=== PATIENT | female | born 2000 | race Caucasian/White ===

== ENCOUNTER → 2022-07-05 | Outpatient (REF) | LOC: M EMP 08:25 | PROVIDERS: ATTEND Family Medicine | DX: Z11.52 Encounter for screening for COVID-19 (principal) ==

== ENCOUNTER → 2022-07-12 | Outpatient (REF) | LOC: M EMP 13:47 | PROVIDERS: ATTEND Family Medicine | DX: Z11.52 Encounter for screening for COVID-19 (principal) ==

== ENCOUNTER → 2022-11-17 | Outpatient (CLI) | payer OTHER ==
[~2022-11-17] MED LIST: CEFD300C41 PO; JUNETAB PO
[2022-11-17 13:27] LABS: BASO # 0.1 10^3/uL (0.0-0.2); BASO % 0.8 % (0.0-1.0); EOS # 0.1 10^3/uL (0.0-0.5); EOS % 1.6 % (0.0-3.0); HEMATOCRIT 36.3 % (36.0-47.0); HEMOGLOBIN 11.6 g/dl (12.0-15.5); LYMPH # 2.1 10^3/uL (1.5-5.0); LYMPH % 32.4 % (24.0-44.0); MEAN CORPUSCULAR HEMOGLOBIN 27.7 pg (27.0-33.0); MEAN CORPUSCULAR VOLUME 86.6 fl (80.0-96.0); MONO # 0.4 10^3/uL (0.0-0.8); MONO % 6.2 % (2.0-8.0); NEUTROPHILS # 3.8 10^3/uL (1.5-8.5); NEUTROPHILS % 58.7 % (36.0-66.0); PLATELET COUNT, AUTOMATED 381 10^3/uL (150-450); RED BLOOD COUNT 4.19 10^6/uL (4.00-5.40); WHITE BLOOD COUNT 6.5 10^3/uL (4.0-10.0)
[2022-11-17 13:53] LABS: ALBUMIN 3.6 G/DL (3.2-5.2); ALKALINE PHOSPHATASE 34 U/L (46-116); ALT/SGPT 14 U/L (7.0-40); AST/SGOT 9 U/L (<34); BILIRUBIN,TOTAL 0.3 MG/DL (0.3-1.2); BLOOD UREA NITROGEN 12 MG/DL (9-23); CALCIUM LEVEL 9.1 MG/DL (8.5-10.1); CARBON DIOXIDE LEVEL 26 MMOL/L (20-31); CHLORIDE LEVEL 106 MMOL/L (98-107); CREATININE FOR GFR 0.68 MG/DL (0.55-1.30); GLOMERULAR FILTRATION RATE > 60.0 (>60); GLUCOSE, FASTING 101 MG/DL (60-100); SODIUM LEVEL 139 MMOL/L (136-145); TOTAL PROTEIN 6.5 G/DL (5.7-8.2)
[2022-11-17 13:56] LABS: THYROID STIMULATING HORMONE 1.088 uIU/ML (0.55-4.78)
[2022-11-17 15:42] LABS: IRON (FE) 69 UG/DL (50-170)
[2022-11-17 15:43] LABS: PERCENT SATURATION 18.8 % (13.2-45.0); TOTAL IRON BINDING CAPACITY 368 UG/DL (250-425)
[2022-11-17 15:45] LABS: FERRITIN 42.9 NG/ML (7.3-270.7)
[2022-11-17 15:46] LABS: VITAMIN B12 LEVEL 211 PG/ML (211-911)
== END ==
LOC: M LAB 12:56
PROVIDERS: ATTEND Physician Assistant Medical
DX: R55 Syncope and collapse (principal); L74.512 Primary focal hyperhidrosis, palms

== ENCOUNTER → 2022-11-17 | Outpatient (REF) | payer OTHER | LOC: M SFHCCAPE 14:21 | PROVIDERS: ATTEND Physician Assistant Medical | DX: Z53.9 Procedure and treatment not carried out, unspecified reason (principal) ==

== ENCOUNTER → 2023-04-15 | Outpatient (REF) | payer OTHER ==
[~2023-04-15] MED LIST changes: +CEFD1CAP9 PO; -CEFD300C41 PO
[2023-04-15 12:13] LABS: BASO # 0.1 10^3/uL (0.0-0.2); BASO % 0.9 % (0.0-1.0); EOS # 0.3 10^3/uL (0.0-0.5); EOS % 4.6 % (0.0-3.0); HEMATOCRIT 37.5 % (36.0-47.0); HEMOGLOBIN 11.9 g/dl (12.0-15.5); LYMPH % 36.3 % (24.0-44.0); MEAN CORPUSCULAR HGB CONC 31.7 g/dl (32.0-36.5); MEAN CORPUSCULAR VOLUME 88.2 fl (80.0-96.0); MONO # 0.4 10^3/uL (0.0-0.8); MONO % 7.7 % (2.0-8.0); NEUTROPHILS # 2.8 10^3/uL (1.5-8.5); NEUTROPHILS % 50.1 % (36.0-66.0); PLATELET COUNT, AUTOMATED 385 10^3/uL (150-450); RED BLOOD COUNT 4.25 10^6/uL (4.00-5.40); WHITE BLOOD COUNT 5.6 10^3/uL (4.0-10.0)
[2023-04-15 12:16] LABS: VITAMIN B12 LEVEL 506 PG/ML (211-911)
[2023-04-15 12:17] LABS: ALBUMIN 3.3 G/DL (3.2-5.2); ALKALINE PHOSPHATASE 39 U/L (46-116); ALT/SGPT 31 U/L (7.0-40); AST/SGOT 19 U/L (<34); BILIRUBIN,TOTAL 0.3 MG/DL (0.3-1.2); BLOOD UREA NITROGEN 13 MG/DL (9-23); CALCIUM LEVEL 8.9 MG/DL (8.5-10.1); CARBON DIOXIDE LEVEL 28 MMOL/L (20-31); CHLORIDE LEVEL 110 MMOL/L (98-107); CREATININE FOR GFR 0.62 MG/DL (0.55-1.30); FOLATE 5.96 NG/ML (>5.4); GLOMERULAR FILTRATION RATE > 60.0 (>60); GLUCOSE, FASTING 80 MG/DL (60-100); IRON (FE) 41 UG/DL (50-170); PERCENT SATURATION 11.7 % (13.2-45.0); POTASSIUM SERUM 4.6 MMOL/L (3.5-5.1); SODIUM LEVEL 144 MMOL/L (136-145); TOTAL IRON BINDING CAPACITY 349 UG/DL (250-425)
== END ==
LOC: M SFHCCLAY 08:48
PROVIDERS: ATTEND Nurse Practitioner Family
DX: D64.9 Anemia, unspecified (principal); R55 Syncope and collapse
CPT/HCPCS: 80053; 82607; 82728; 82746; 83550; 85025; G0463

== ENCOUNTER 2023-04-29 20:02 | Emergency (ER) | payer OTHER ==
[~2023-04-29] VITALS: Ht 162.6 cm; Wt 68.0 kg
[2023-04-29 20:04] VITALS: BP 135/86; TEMP 97.1; O2SAT 100
[2023-04-29 20:27] LABS: BASO % 0.5 % (0.0-1.0); EOS # 0.4 10^3/uL (0.0-0.5); EOS % 5.1 % (0.0-3.0); HEMATOCRIT 40.4 % (36.0-47.0); HEMOGLOBIN 13.1 g/dl (12.0-15.5); LYMPH # 3.1 10^3/uL (1.5-5.0); LYMPH % 41.4 % (24.0-44.0); MEAN CORPUSCULAR HGB CONC 32.4 g/dl (32.0-36.5); MEAN CORPUSCULAR VOLUME 86.3 fl (80.0-96.0); MONO # 0.5 10^3/uL (0.0-0.8); NEUTROPHILS # 3.5 10^3/uL (1.5-8.5); NEUTROPHILS % 45.7 % (36.0-66.0); PLATELET COUNT, AUTOMATED 396 10^3/uL (150-450); RED BLOOD COUNT 4.68 10^6/uL (4.00-5.40); WHITE BLOOD COUNT 7.6 10^3/uL (4.0-10.0)
[2023-04-29 20:47] LABS: LIPASE 31 U/L (12-53)
[2023-04-29 20:49] LABS: ALBUMIN 3.8 G/DL (3.2-5.2); ALKALINE PHOSPHATASE 44 U/L (46-116); ALT/SGPT 31 U/L (7.0-40); AST/SGOT 21 U/L (<34); BILIRUBIN,DIRECT < 0.1 MG/DL (<0.4); BILIRUBIN,TOTAL 0.2 MG/DL (0.3-1.2); BLOOD UREA NITROGEN 12 MG/DL (9-23); CALCIUM LEVEL 9.6 MG/DL (8.5-10.1); CARBON DIOXIDE LEVEL 27 MMOL/L (20-31); CHLORIDE LEVEL 107 MMOL/L (98-107); CREATININE FOR GFR 0.67 MG/DL (0.55-1.30); GLOMERULAR FILTRATION RATE > 60.0 (>60); GLUCOSE, FASTING 100 MG/DL (60-100); POTASSIUM SERUM 4.3 MMOL/L (3.5-5.1); SODIUM LEVEL 141 MMOL/L (136-145)
[2023-04-29 20:53] LABS: HCG, SERUM QUALITATIVE NEGATIVE (NEGATIVE)
== END 2023-04-29 22:31 | disposition left against medical advice (07) ==
LOC: M ED 20:02
DX: Z53.21 Procedure and treatment not carried out due to patient leaving prior to being seen by health care provider (principal)

== ENCOUNTER → 2023-07-28 | Outpatient (REF) | payer OTHER | LOC: M SFHCPLAZ 15:09 | PROVIDERS: ATTEND Physician Assistant | DX: J02.9 Acute pharyngitis, unspecified (principal); R09.81 Nasal congestion ==

== ENCOUNTER → 2023-09-26 | Outpatient (REF) | payer OTHER ==
[2023-09-26 17:47] LABS: THYROID STIMULATING HORMONE 0.724 uIU/ML (0.55-4.78)
[2023-09-26 17:48] LABS: FREE T4 1.42 NG/DL (0.89-1.76)
== END ==
LOC: M LABDRAWC 16:42
PROVIDERS: ATTEND Internal Medicine Cardiovascular Disease
DX: R55 Syncope and collapse (principal); R00.2 Palpitations; Z13.29 Encounter for screening for other suspected endocrine disorder

== ENCOUNTER → 2023-11-25 | Outpatient (REF) | payer OTHER ==
[2023-11-25 17:15] LABS: URINE PREG TEST NEGATIVE (NEGATIVE)
== END ==
LOC: M LAB REF 16:16
PROVIDERS: ATTEND Physician Assistant
DX: Z32.00 Encounter for pregnancy test, result unknown (principal)

== ENCOUNTER → 2024-03-27 | Outpatient (REF) | payer OTHER ==
[2024-03-27 11:48] LABS: BASO % 0.7 % (0.0-1.0); EOS # 0.2 10^3/uL (0.0-0.5); EOS % 3.2 % (0.0-3.0); HEMATOCRIT 39.8 % (36.0-47.0); HEMOGLOBIN 12.9 g/dl (12.0-15.5); LYMPH # 2.1 10^3/uL (1.5-5.0); LYMPH % 37.4 % (24.0-44.0); MEAN CORPUSCULAR HEMOGLOBIN 28.9 pg (27.0-33.0); MEAN CORPUSCULAR HGB CONC 32.4 g/dl (32.0-36.5); MONO # 0.4 10^3/uL (0.0-0.8); MONO % 7.1 % (2.0-8.0); NEUTROPHILS # 2.9 10^3/uL (1.5-8.5); NEUTROPHILS % 51.2 % (36.0-66.0); PLATELET COUNT, AUTOMATED 318 10^3/uL (150-450); RED BLOOD COUNT 4.47 10^6/uL (4.00-5.40); WHITE BLOOD COUNT 5.6 10^3/uL (4.0-10.0)
[2024-03-27 12:09] LABS: HEMOGLOBIN A1c 4.9 % (4.0-6.0)
[2024-03-27 12:15] LABS: IRON (FE) 135 UG/DL (50-170)
[2024-03-27 12:16] LABS: ALBUMIN 3.8 G/DL (3.2-5.2); ALKALINE PHOSPHATASE 58 U/L (35-104); ALT/SGPT 46 U/L (7.0-40); AST/SGOT 25 U/L (<34); BILIRUBIN,TOTAL 0.6 MG/DL (0.3-1.2); BLOOD UREA NITROGEN 14 MG/DL (9-23); CALCIUM LEVEL 9.5 MG/DL (8.5-10.1); CARBON DIOXIDE LEVEL 27 MMOL/L (20-31); CHLORIDE LEVEL 107 MMOL/L (98-107); GLOMERULAR FILTRATION RATE > 60.0 (>60); GLUCOSE, FASTING 82 MG/DL (60-100); PERCENT SATURATION 43.5 % (13.2-45.0); POTASSIUM SERUM 4.4 MMOL/L (3.5-5.1); SODIUM LEVEL 141 MMOL/L (136-145); TOTAL IRON BINDING CAPACITY 310 UG/DL (250-425); TOTAL PROTEIN 6.8 G/DL (5.7-8.2)
[2024-03-27 12:17] LABS: FERRITIN 41.3 NG/ML (7.3-270.7); FREE T4 1.23 NG/DL (0.89-1.76)
[2024-03-27 12:18] LABS: FOLATE 14.01 NG/ML (>5.4); VITAMIN B12 LEVEL 885 PG/ML (211-911)
== END ==
LOC: M SFHCCLAY 09:11
PROVIDERS: ATTEND Nurse Practitioner Family
DX: R55 Syncope and collapse (principal); D64.9 Anemia, unspecified